=== PATIENT | male | born 1950 | race African-American/Black ===

== ENCOUNTER 2020-07-25 09:58 | Inpatient (IN) | payer MEDICARE, OTHER ==
[2020-07-25 10:21] VITALS: BMI 29.0
[2020-07-25] MEDS ORDERED: ACETAMINOPHEN 1000 MG/100 ML VIAL (NON FORMULARY) IVPB ONE (10:31)
[2020-07-25 11:18] LABS: BASO % 0.4 % (0-2.0); EOS % 0.2 % (0-4.5); HEMATOCRIT 48.1 % (35.4-49); HEMOGLOBIN 16.3 GM/dL (11.7-16.9); LYMPH % 14.2 % (8-40); MEAN CELL VOLUME 97.2 fl (80-96); MEAN PLT VOLUME 10.4 fl (7.5-11.1); MONO % 3.8 % (3.8-10.2); NEUT % 81.4 % (42.8-82.8); PLATELET COUNT 129 K/MM3 (134-434); RBC 4.94 M/mm3 (4.00-5.60); RDW 13.3 % (11.9-15.9); WHITE BLOOD COUNT 4.5 K/mm3 (4.0-10.0)
[2020-07-25 11:22] LABS: EPI CELLS >36 /uL (0-25.1); HYALINE CASTS 0 /uL (0-3.1); PH,URINE 8.5 (5.0-8.0); URINE APPEARANCE CLEAR; URINE BACTERIA 26 /uL (0-1359); URINE BILIRUBIN NEGATIVE (NEGATIVE); URINE COLOR YELLOW; URINE GLUCOSE (UA) NEGATIVE (NEGATIVE); URINE KETONE NEGATIVE (NEGATIVE); URINE LEUK ESTERASE NEGATIVE (NEGATIVE); URINE NITRITE NEGATIVE (NEGATIVE); URINE PROTEIN 3+ (NEGATIVE); URINE RBC 20 /uL (0-23.9); URINE UROBILINOGEN 0.2 mg/dL (0.2-1.0); URINE WBC 45 /uL (0-25.8)
[2020-07-25 11:26] LABS: INR 1.15 (0.83-1.09); PROTHROMBIN TIME (PATIENT) 13.8 SEC (9.7-13.0)
[2020-07-25 11:29] LABS: ACTIVATED PTT 32.3 SECONDS (25.2-36.5)
[2020-07-25 11:44] LABS: CHLORIDE 101 mmol/L (98-107); POTASSIUM 3.3 mmol/L (3.5-5.1); SODIUM 135 mmol/L (136-145)
[2020-07-25 11:46] LABS: CALCIUM 9.4 mg/dL (8.5-10.1)
[2020-07-25 11:47] LABS: ALBUMIN 4.1 g/dl (3.4-5.0); ANION GAP 9 MMOL/L (8-16); BLOOD UREA NITROGEN 8.2 mg/dL (7-18); CO2 26 mmol/L (21-32); GLUCOSE,RANDOM 168 mg/dL (74-106)
[2020-07-25 11:49] LABS: CHOLESTEROL 160 mg/dL (50-200); TRIGLYCERIDES 68 mg/dL (0-150)
[2020-07-25 11:50] LABS: LDL CHOLESTEROL (ONLY SJRH) 102 mg/dL (5-100); SGOT/AST 24 U/L (15-37); SGPT/ALT 20 U/L (13-61)
[2020-07-25 11:51] LABS: BILIRUBIN,TOTAL 1.7 mg/dL (0.2-1); TOT PROT 8.3 g/dl (6.4-8.2)
[2020-07-25 11:52] LABS: HDL CHOLESTEROL 45 mg/dL (40-60)
[2020-07-25 11:53] LABS: ALK PHOS 75 U/L (45-117)
[2020-07-25] MEDS ORDERED: ACETAMINOPHEN INJECTION 100 ML IVPB ONE (11:53)
[2020-07-25] MEDS: SODIUM CHLORIDE 1,000 ML IV SCH (12:00)
[2020-07-25] MEDS ORDERED: ASPIRIN 81 MG CHEWABLE TABLETS PO ONE (12:16)
[2020-07-25] MEDS ORDERED: ATORVASTATIN CA 80 MG TABLET (FP) PO ONE (12:16)
[2020-07-25] MEDS ORDERED: ASPIRIN SUPPOSITORY 600 MG SUPP.RECT PR ONE ×2 (12:21→13:27)
[2020-07-25] MEDS ORDERED: ASPIRIN 300 MG SUPP.RECT RC ONE (13:24)
[2020-07-25] MEDS ORDERED: CARVEDILOL 25 MG TABLET (FP) PO SCH (13:30)
[2020-07-25] MEDS ORDERED: CARVEDILOL 25 MG TABLET (FP) PO ONE (13:30)
[2020-07-25] MEDS ORDERED: hydrALAZINE HCL 50 MG TABLET (FP) PO SCH ×2 (13:30→22:00)
[2020-07-25] MEDS ORDERED: CHOLECALCIFEROL (VIT D3) 1,000 UNIT (25 MCG) TABLET PO SCH (13:30)
[2020-07-25] MEDS ORDERED: hydrALAZINE HCL 20 MG/ML VIAL IVPUSH PRN (13:42)
[2020-07-25] MEDS ORDERED: METOPROLOL TARTRATE 5 MG/5 ML VIAL IVPUSH PRN (13:44)
[2020-07-25] MEDS ORDERED: PANTOPRAZOLE 40 MG TABLET PO SCH (14:15)
[2020-07-25] MEDS ORDERED: ENOXAPARIN NA (PORCINE) 40 MG/0.4 ML DISP.SYRIN SQ SCH (14:15)
[2020-07-25] MEDS ORDERED: ENOXAPARIN NA (PORCINE) 40 MG/0.4 ML DISP.SYRIN SQ ONE (15:37)
[2020-07-25] MEDS ORDERED: KCL 10 MEQ IVPB 10 MEQ/100 ML INFUS.BAG IVPB ONE (15:37)
[2020-07-25] MEDS: KCL 10 MEQ IVPB 10 MEQ/100 ML INFUS.BAG IVPB SCH ×3 (15:47→21:11)
[2020-07-25] MEDS: PANTOPRAZOLE SODIUM 40 MG VIAL IVPUSH SCH (15:47)
[2020-07-25] MEDS ORDERED: hydrALAZINE HCL 20 MG/ML VIAL ONE (15:49)
[2020-07-25] MEDS: D5-1/2NS+20 MEQ KCL - 20 MEQ/1,000 ML INFUS.BAG IV SCH (20:13)
[2020-07-25] MEDS ORDERED: PNEUMOC 13-VAL CONJ-DIP CRM/PF 0.5 ML DISP.SYRIN IM ONE (21:00)
[2020-07-25] MEDS ORDERED: ATORVASTATIN CA 40 MG TABLET (FP) PO SCH (22:00)
[2020-07-25] MEDS ORDERED: ONDANSETRON 4 MG/2 ML VIAL IVPUSH PRN (22:12)
[2020-07-26] MEDS ORDERED: METOPROLOL TARTRATE 5 MG/5 ML VIAL IVPUSH PRN ×5 (04:36→14:44)
[2020-07-26] MEDS ORDERED: hydrALAZINE HCL 20 MG/ML VIAL IVPUSH PRN ×5 (04:36→14:44)
[2020-07-26 05:15] LABS: MCH 31.5 pg (25.7-33.7); MCHC 32.7 g/dl (32.0-35.9); MEAN CELL VOLUME 96.5 fl (80-96); MEAN PLT VOLUME 10.4 fl (7.5-11.1); PLATELET COUNT 138 K/MM3 (134-434); RBC 5.08 M/mm3 (4.00-5.60); RDW 13.4 % (11.9-15.9); WHITE BLOOD COUNT 11.1 K/mm3 (4.0-10.0)
[2020-07-26] MEDS: D5-1/2NS+20 MEQ KCL - 20 MEQ/1,000 ML INFUS.BAG IV SCH ×2 (06:24→17:55)
[2020-07-26 07:15] LABS: CHOLESTEROL 161 mg/dL (50-200); TRIGLYCERIDES 68 mg/dL (0-150)
[2020-07-26 07:16] LABS: LDL CHOLESTEROL (ONLY SJRH) 107 mg/dL (5-100)
[2020-07-26 07:18] LABS: HDL CHOLESTEROL 44 mg/dL (40-60)
[2020-07-26] MEDS ORDERED: KCL 10 MEQ IVPB 10 MEQ/100 ML INFUS.BAG IVPB SCH (08:30)
[2020-07-26] MEDS: FUROSEMIDE 40 MG/4 ML INJECTABLE VIAL IVPB SCH (09:37)
[2020-07-26] MEDS: PANTOPRAZOLE SODIUM 40 MG VIAL IVPUSH SCH ×2 (09:44→21:09)
[2020-07-26] MEDS ORDERED: ASPIRIN COATED 81 MG TABLET.EC PO SCH (10:00)
[2020-07-26] MEDS ORDERED: NIFEdipine E.R. 30 MG TABLET PO SCH (10:00)
[2020-07-26] MEDS ORDERED: FUROSEMIDE 40 MG TABLET (FP) PO SCH (10:00)
[2020-07-26] MEDS ORDERED: OXYBUTYNIN CHLORIDE 5 MG TABLET PO SCH (10:00)
[2020-07-26] MEDS ORDERED: LISINOPRIL 20 MG TABLET PO SCH (10:00)
[2020-07-26 16:53] LABS: POTASSIUM 4.3 mmol/L (3.5-5.1)
[2020-07-26 16:55] LABS: CALCIUM 8.6 mg/dL (8.5-10.1)
[2020-07-26 16:56] LABS: ALBUMIN 3.4 g/dl (3.4-5.0); BLOOD UREA NITROGEN 33.2 mg/dL (7-18)
[2020-07-26 16:59] LABS: CREATININE 1.2 mg/dL (0.55-1.3)
[2020-07-26 17:00] LABS: BILIRUBIN,TOTAL 1.1 mg/dL (0.2-1); TOT PROT 7.4 g/dl (6.4-8.2)
[2020-07-26] MEDS: SODIUM CHLORIDE 1,000 ML IV SCH (17:47)
[2020-07-26] MEDS: ASPIRIN COATED 81 MG TABLET.EC PO SCH ×2 (21:09→21:21)
[2020-07-27] MEDS: D5-1/2NS+20 MEQ KCL - 20 MEQ/1,000 ML INFUS.BAG IV SCH ×2 (06:33→14:36)
[2020-07-27 07:14] LABS: CHLORIDE 106 mmol/L (98-107); POTASSIUM 3.9 mmol/L (3.5-5.1); SODIUM 137 mmol/L (136-145)
[2020-07-27 07:22] LABS: CALCIUM 8.3 mg/dL (8.5-10.1)
[2020-07-27 07:23] LABS: ALBUMIN 3.3 g/dl (3.4-5.0); ANION GAP 5 MMOL/L (8-16); BLOOD UREA NITROGEN 29.7 mg/dL (7-18); CO2 26 mmol/L (21-32); GLUCOSE,RANDOM 114 mg/dL (74-106)
[2020-07-27 07:26] LABS: CREATININE 1.1 mg/dL (0.55-1.3); SGOT/AST 28 U/L (15-37)
[2020-07-27 07:28] LABS: SGPT/ALT 23 U/L (13-61); TOT PROT 6.8 g/dl (6.4-8.2)
[2020-07-27 07:29] LABS: ALK PHOS 59 U/L (45-117)
[2020-07-27 07:34] LABS: BASO % 0.2 % (0-2.0); EOS % 0.1 % (0-4.5); HEMATOCRIT 45.4 % (35.4-49); LYMPH % 12.5 % (8-40); MCHC 33.2 g/dl (32.0-35.9); MEAN CELL VOLUME 96.5 fl (80-96); MEAN PLT VOLUME 10.9 fl (7.5-11.1); NEUT % 80.2 % (42.8-82.8); PLATELET COUNT 121 K/MM3 (134-434); RDW 13.6 % (11.9-15.9); WHITE BLOOD COUNT 12.3 K/mm3 (4.0-10.0)
[2020-07-27 07:50] LABS: AMYLASE 63 U/L (25-115)
[2020-07-27 07:51] LABS: LIPASE 101 U/L (73-393)
[2020-07-27 07:53] LABS: IRON SERUM 70 ug/dL (50-175)
[2020-07-27 07:54] LABS: TOTAL IRON BINDING CAPACITY 273 ug/dL (250-450)
[2020-07-27] MEDS ORDERED: D5-1/2NS+20 MEQ KCL - 20 MEQ/1,000 ML INFUS.BAG IV SCH (08:42)
[2020-07-27 09:21] LABS: RETICULOCYTES 1.89 % (0.5-1.5)
[2020-07-27] MEDS: PANTOPRAZOLE SODIUM 40 MG VIAL IVPUSH SCH ×2 (10:44→21:21)
[2020-07-27] MEDS: FUROSEMIDE 40 MG/4 ML INJECTABLE VIAL IVPB SCH (10:45)
[2020-07-27] MEDS: SODIUM CHLORIDE 1,000 ML IV SCH (11:04)
[2020-07-27] MEDS ORDERED: PNEUMOC 13-VAL CONJ-DIP CRM/PF 0.5 ML DISP.SYRIN IM ONE (11:15)
[2020-07-27] MEDS: LISINOPRIL 20 MG TABLET PO SCH (15:18)
[2020-07-27] MEDS: CARVEDILOL 25 MG TABLET (FP) PO SCH (21:21)
[2020-07-27] MEDS: ATORVASTATIN CA 40 MG TABLET (FP) PO SCH (21:21)
[2020-07-27] MEDS: OXYBUTYNIN CHLORIDE 5 MG TABLET PO SCH (23:36)
[2020-07-28] MEDS: hydrALAZINE HCL 50 MG TABLET (FP) PO SCH ×2 (07:39→21:33)
[2020-07-28 07:56] LABS: ALBUMIN 2.9 g/dl (3.4-5.0); BLOOD UREA NITROGEN 24.5 mg/dL (7-18); CALCIUM 8.1 mg/dL (8.5-10.1); POTASSIUM 4.4 mmol/L (3.5-5.1); TOT PROT 6.3 g/dl (6.4-8.2)
[2020-07-28] MEDS: SPIRONOLACTONE 25 MG TABLET PO SCH (08:24)
[2020-07-28] MEDS: TAMSULOSIN HCL 0.4 MG CAP PO SCH (08:24)
[2020-07-28 09:28] LABS: BASO % 0.5 % (0-2.0); EOS % 0.4 % (0-4.5); HEMATOCRIT 43.6 % (35.4-49); HEMOGLOBIN 14.3 GM/dL (11.7-16.9); LYMPH % 11.8 % (8-40); MCH 32.5 pg (25.7-33.7); MCHC 32.9 g/dl (32.0-35.9); MEAN CELL VOLUME 98.8 fl (80-96); MEAN PLT VOLUME 11.3 fl (7.5-11.1); MONO % 7.1 % (3.8-10.2); NEUT % 80.2 % (42.8-82.8); PLATELET COUNT 107 K/MM3 (134-434); RBC 4.42 M/mm3 (4.00-5.60); RDW 13.8 % (11.9-15.9); WHITE BLOOD COUNT 9.5 K/mm3 (4.0-10.0)
[2020-07-28] MEDS ORDERED: hydrALAZINE HCL 50 MG TABLET (FP) PO SCH (10:00)
[2020-07-28] MEDS ORDERED: PT OWN MED DRAWER 7, Y5N ONE (10:29)
[2020-07-28] MEDS: D5-1/2NS+20 MEQ KCL - 20 MEQ/1,000 ML INFUS.BAG IV SCH ×2 (10:31→16:22)
[2020-07-28] MEDS: PANTOPRAZOLE SODIUM 40 MG VIAL IVPUSH SCH (10:33)
[2020-07-28] MEDS: LISINOPRIL 20 MG TABLET PO SCH (10:34)
[2020-07-28] MEDS: OXYBUTYNIN CHLORIDE 5 MG TABLET PO SCH (10:34)
[2020-07-28] MEDS: CARVEDILOL 25 MG TABLET (FP) PO SCH ×2 (10:34→21:32)
[2020-07-28] MEDS: FUROSEMIDE 40 MG TABLET (FP) PO SCH (10:34)
[2020-07-28] MEDS: SODIUM CHLORIDE 1,000 ML IV SCH (10:35)
[2020-07-28] MEDS: APIXABAN 5 MG TABLET PO SCH ×2 (13:38→21:32)
[2020-07-28] MEDS: PANTOPRAZOLE 40 MG TABLET PO SCH (21:32)
[2020-07-28] MEDS: ATORVASTATIN CA 40 MG TABLET (FP) PO SCH (21:32)
[2020-07-29 07:16] LABS: BASO % 0.3 % (0-2.0); HEMOGLOBIN 13.7 GM/dL (11.7-16.9); MCH 31.7 pg (25.7-33.7); MCHC 32.6 g/dl (32.0-35.9); MEAN CELL VOLUME 97.4 fl (80-96); MEAN PLT VOLUME 11.1 fl (7.5-11.1); MONO % 8.3 % (3.8-10.2); NEUT % 77.4 % (42.8-82.8); PLATELET COUNT 122 K/MM3 (134-434); RBC 4.31 M/mm3 (4.00-5.60); RDW 13.4 % (11.9-15.9); WHITE BLOOD COUNT 8.8 K/mm3 (4.0-10.0)
[2020-07-29 07:36] LABS: CALCIUM 8.4 mg/dL (8.5-10.1)
[2020-07-29 07:37] LABS: ALBUMIN 3.1 g/dl (3.4-5.0); BLOOD UREA NITROGEN 15.7 mg/dL (7-18)
[2020-07-29 07:39] LABS: CREATININE 1.1 mg/dL (0.55-1.3)
[2020-07-29 07:40] LABS: BILIRUBIN,TOTAL 1.4 mg/dL (0.2-1)
[2020-07-29 07:41] LABS: TOT PROT 6.4 g/dl (6.4-8.2)
[2020-07-29] MEDS: PANTOPRAZOLE 40 MG TABLET PO SCH ×2 (10:01→21:55)
[2020-07-29] MEDS: LISINOPRIL 20 MG TABLET PO SCH (10:01)
[2020-07-29] MEDS: TAMSULOSIN HCL 0.4 MG CAP PO SCH (10:01)
[2020-07-29] MEDS: CARVEDILOL 25 MG TABLET (FP) PO SCH ×2 (10:01→21:55)
[2020-07-29] MEDS: SPIRONOLACTONE 25 MG TABLET PO SCH (10:01)
[2020-07-29] MEDS: APIXABAN 5 MG TABLET PO SCH ×2 (10:01→21:55)
[2020-07-29] MEDS: hydrALAZINE HCL 50 MG TABLET (FP) PO SCH ×2 (10:01→22:02)
[2020-07-29] MEDS: FUROSEMIDE 40 MG TABLET (FP) PO SCH (10:01)
[2020-07-29] MEDS: SODIUM CHLORIDE 1,000 ML IV SCH (10:02)
[2020-07-29] MEDS ORDERED: SPIRONOLACTONE 25 MG TABLET PO ONE (11:57)
[2020-07-29] MEDS: ISOSORBIDE MONONITRATE 30 MG TAB.SR.24H (FP) PO SCH (12:21)
[2020-07-29] MEDS: ACETAMINOPHEN 325 MG TABLET (FP) PO PRN ×2 (13:16→22:01)
[2020-07-29] MEDS: D5-1/2NS+20 MEQ KCL - 20 MEQ/1,000 ML INFUS.BAG IV SCH (17:21)
[2020-07-29] MEDS: ATORVASTATIN CA 40 MG TABLET (FP) PO SCH (21:56)
[2020-07-30 01:36] VITALS: TEMP 98.2
[2020-07-30 06:22] VITALS: BP 139/88; PULSE 63
[2020-07-30] MEDS: TAMSULOSIN HCL 0.4 MG CAP PO SCH (09:53)
[2020-07-30] MEDS: hydrALAZINE HCL 50 MG TABLET (FP) PO SCH (09:53)
[2020-07-30] MEDS: PANTOPRAZOLE 40 MG TABLET PO SCH (09:53)
[2020-07-30] MEDS: CARVEDILOL 25 MG TABLET (FP) PO SCH (09:54)
[2020-07-30] MEDS: FUROSEMIDE 40 MG TABLET (FP) PO SCH (09:54)
[2020-07-30] MEDS: LISINOPRIL 20 MG TABLET PO SCH (09:54)
[2020-07-30] MEDS: ISOSORBIDE MONONITRATE 30 MG TAB.SR.24H (FP) PO SCH (09:54)
[2020-07-30] MEDS: APIXABAN 5 MG TABLET PO SCH (09:54)
[2020-07-30] MEDS ORDERED: SPIRONOLACTONE 25 MG TABLET PO SCH (10:00)
== END 2020-07-30 11:59 | DRG 65 ==
LOC: JER 09:58 → JERBED 12:26 → J4S 18:33 → J4W 07-27 20:52
PROVIDERS: ADMIT Internal Medicine; ATTEND Internal Medicine
DX: I63.9 Cerebral infarction, unspecified (principal); I50.42 Chronic combined systolic (congestive) and diastolic (congestive) heart failure; I48.92 Unspecified atrial flutter; K92.2 Gastrointestinal hemorrhage, unspecified; N40.0 Benign prostatic hyperplasia without lower urinary tract symptoms; I11.0 Hypertensive heart disease with heart failure; E78.5 Hyperlipidemia, unspecified; E87.6 Hypokalemia; K40.90 Unilateral inguinal hernia, without obstruction or gangrene, not specified as recurrent; D72.829 Elevated white blood cell count, unspecified; I69.321 Dysphasia following cerebral infarction; R55 Syncope and collapse; R42 Dizziness and giddiness; R29.705 NIHSS score 5; R11.2 Nausea with vomiting, unspecified; I49.9 Cardiac arrhythmia, unspecified; I65.02 Occlusion and stenosis of left vertebral artery; R50.9 Fever, unspecified; I65.22 Occlusion and stenosis of left carotid artery; I16.0 Hypertensive urgency; D69.6 Thrombocytopenia, unspecified; I69.392 Facial weakness following cerebral infarction; Y92.89 Other specified places as the place of occurrence of the external cause; I25.10 Atherosclerotic heart disease of native coronary artery without angina pectoris; W18.30XA Fall on same level, unspecified, initial encounter; Z95.1 Presence of aortocoronary bypass graft; Z95.2 Presence of prosthetic heart valve; Z86.010 Personal history of colon polyps
CPT/HCPCS: 36415; 70450-TC; 70496-TC; 70498-TC; 70544-TC; 70551-TC; 70552-TC; 71045-TC-FY; 72125-TC; 74230-TC-FY; 80053; 80061; 81003; 82150; 82271; 82550; 82728; 83036; 83540; 83550; 83690; 83721; 84484; 85025; 85027; 85045; 85610; 85651; 85730; 86140; 86850; 86900; 86901; 87040; 87086; 90670; 92611-GN; 93005; 93010; 93306-TC; 93880-TC; 97116-GP; 97161-GP; 97163-GP; 99285-25; C9803; J0131; Q9967; U0003

== ENCOUNTER 2022-02-10 11:41 | Inpatient (IN) | payer MEDICARE, OTHER ==
[2022-02-10 11:50] VITALS: BMI 29.8
[2022-02-10] MEDS ORDERED: FUROSEMIDE 40 MG/4 ML INJECTABLE VIAL IVPUSH ONE ×2 (12:45→15:32)
[2022-02-10] MEDS ORDERED: FUROSEMIDE 40 MG/4 ML INJECTABLE VIAL ONE ×2 (13:03→17:53)
[2022-02-10 14:21] LABS: BASO % 0.5 % (0-2.0); EOS % 0.1 % (0-4.5); HEMATOCRIT 29.1 % (35.4-49); HEMOGLOBIN 9.3 GM/dL (11.7-16.9); LYMPH % 5.3 % (8-40); MCH 25.6 pg (25.7-33.7); MCHC 31.9 g/dl (32.0-35.9); MEAN CELL VOLUME 80.4 fl (80-96); MEAN PLT VOLUME 9.9 fl (7.5-11.1); MONO % 8.4 % (3.8-10.2); NEUT % 85.7 % (42.8-82.8); PLATELET COUNT 190 10^3/uL (134-434); RBC 3.62 M/mm3 (4.00-5.60); RDW 19.5 % (11.9-15.9); WHITE BLOOD COUNT 11.5 K/mm3 (4.0-10.0)
[2022-02-10 14:39] LABS: CHLORIDE 100 mmol/L (98-107); SODIUM 139 mmol/L (136-145)
[2022-02-10 14:41] LABS: ALBUMIN 2.8 g/dl (3.4-5.0); ANION GAP 7 MMOL/L (8-16); BLOOD UREA NITROGEN 20.5 mg/dL (7-18); CALCIUM 8.6 mg/dL (8.5-10.1); CO2 33 mmol/L (21-32); GLUCOSE,RANDOM 123 mg/dL (74-106)
[2022-02-10 14:44] LABS: CREATININE 1.3 mg/dL (0.55-1.3); SGOT/AST 92 U/L (15-37); SGPT/ALT 96 U/L (13-61)
[2022-02-10 14:45] LABS: EPI CELLS 7 /uL (0-25.1); HYALINE CASTS 3 /uL (0-3.1); URINE APPEARANCE CLEAR; URINE BACTERIA 2946 /uL (0-1359); URINE BILIRUBIN NEGATIVE (NEGATIVE); URINE COLOR YELLOW; URINE GLUCOSE (UA) NEGATIVE (NEGATIVE); URINE KETONE NEGATIVE (NEGATIVE); URINE LEUK ESTERASE 1+ (NEGATIVE); URINE NITRITE NEGATIVE (NEGATIVE); URINE PROTEIN 3+ (NEGATIVE); URINE RBC 1051 /uL (0-23.9); URINE WBC 208 /uL (0-25.8)
[2022-02-10 14:46] LABS: BILIRUBIN,TOTAL 1.1 mg/dL (0.2-1); TOT PROT 6.8 g/dl (6.4-8.2)
[2022-02-10 14:47] LABS: ALK PHOS 120 U/L (45-117)
[2022-02-10 14:49] LABS: N-TERMINAL BNP 7453.5 pg/ml (5-125)
[2022-02-10] MEDS ORDERED: CEFTRIAXONE 1 GM in DEXTROSE 5%-WATER - 50 ML IVPB ONE (14:56)
[2022-02-10] MEDS ORDERED: ASPIRIN COATED 81 MG TABLET.EC PO SCH (15:00)
[2022-02-10] MEDS ORDERED: CEFTRIAXONE 1 GM/50 ML BAG ONE (15:28)
[2022-02-10] MEDS ORDERED: APIXABAN 5 MG TABLET ONE (20:17)
[2022-02-10] MEDS ORDERED: ATORVASTATIN CA 80 MG TABLET (FP) ONE (20:17)
[2022-02-10] MEDS: APIXABAN 5 MG TABLET PO SCH (21:16)
[2022-02-10] MEDS: AMIODARONE HCL 200 MG TABLET PO SCH (21:16)
[2022-02-10] MEDS ORDERED: ATORVASTATIN CA 80 MG TABLET (FP) PO SCH (22:00)
[2022-02-10] MEDS: SACUBITRIL/VALSARTAN 49 MG-51 MG TABLET PO SCH (22:13)
[2022-02-11] MEDS ORDERED: ACETAMINOPHEN 1000 MG/100 ML BAG IVPB ONE (02:48)
[2022-02-11] MEDS ORDERED: ACETAMINOPHEN INJECTION 100 ML IVPB ONE (02:49)
[2022-02-11 07:45] VITALS: BP 105/70; PULSE 54; TEMP 97.8
[2022-02-11] MEDS ORDERED: TAMSULOSIN HCL 0.4 MG CAP PO SCH (08:30)
[2022-02-11] MEDS ORDERED: ASPIRIN COATED 81 MG TABLET.EC ONE (09:38)
[2022-02-11] MEDS ORDERED: APIXABAN 5 MG TABLET ONE (09:38)
[2022-02-11] MEDS ORDERED: AMIODARONE HCL 200 MG TABLET ONE (09:38)
[2022-02-11] MEDS ORDERED: FUROSEMIDE 40 MG/4 ML INJECTABLE VIAL ONE (09:38)
[2022-02-11] MEDS: SACUBITRIL/VALSARTAN 49 MG-51 MG TABLET PO SCH (09:45)
[2022-02-11] MEDS: AMIODARONE HCL 200 MG TABLET PO SCH (09:45)
[2022-02-11] MEDS: APIXABAN 5 MG TABLET PO SCH (09:45)
[2022-02-11] MEDS ORDERED: TOLTERODINE TARTRATE LA 4 MG CAP.SR.24H (FP) PO SCH (10:00)
[2022-02-11] MEDS ORDERED: FUROSEMIDE 40 MG/4 ML INJECTABLE VIAL IVPUSH SCH (10:00)
[2022-02-11] MEDS ORDERED: ASPIRIN COATED 81 MG TABLET.EC PO SCH ×2 (10:00)
[2022-02-12] MEDS ORDERED: CEFTRIAXONE 1 GM in DEXTROSE 5%-WATER - 50 ML IVPB SCH (04:56)
== END 2022-02-11 11:00 | disposition short-term general hospital (02) | DRG 280 ==
LOC: JER 11:41 → JERBED 15:43
PROVIDERS: ADMIT Internal Medicine; ATTEND Internal Medicine
DX: I11.0 Hypertensive heart disease with heart failure (principal); I50.23 Acute on chronic systolic (congestive) heart failure; I21.A1 Myocardial infarction type 2; J96.91 Respiratory failure, unspecified with hypoxia; I48.92 Unspecified atrial flutter; N39.0 Urinary tract infection, site not specified; E78.5 Hyperlipidemia, unspecified; I25.10 Atherosclerotic heart disease of native coronary artery without angina pectoris; I48.91 Unspecified atrial fibrillation; N40.0 Benign prostatic hyperplasia without lower urinary tract symptoms; Z95.2 Presence of prosthetic heart valve; E66.9 Obesity, unspecified; I25.5 Ischemic cardiomyopathy; I44.7 Left bundle-branch block, unspecified; Z68.29 Body mass index [BMI] 29.0-29.9, adult; R00.1 Bradycardia, unspecified; I44.0 Atrioventricular block, first degree
CPT/HCPCS: 36415; 71045-TC-FY; 80053; 81003; 83880; 84443; 84484; 85025; 87086; 93005; 93010; 94660; 99285-25; C9803-CS; U0003; U0005